=== PATIENT | female | born 1945 | race Caucasian/White ===

== ENCOUNTER → 2017-08-12 | Outpatient (CLI) | payer OTHER | LOC: M.RAD 10:03 | DX: Z12.31 Encounter for screening mammogram for malignant neoplasm of breast (principal) ==

== ENCOUNTER → 2018-08-26 | Outpatient (CLI) | payer OTHER | LOC: M.RAD 09:21 | DX: Z12.31 Encounter for screening mammogram for malignant neoplasm of breast (principal) ==

== ENCOUNTER → 2018-10-29 | Outpatient (CLI) | payer OTHER | LOC: M.RAD 13:02 | DX: M85.89 Other specified disorders of bone density and structure, multiple sites (principal); Z78.0 Asymptomatic menopausal state ==

== ENCOUNTER → 2019-09-21 | Outpatient (CLI) | payer MEDICARE | LOC: M.RAD 09:28 | DX: Z12.31 Encounter for screening mammogram for malignant neoplasm of breast (principal) ==

== ENCOUNTER 2019-10-08 05:20 | Emergency (ER) | payer MEDICARE ==
[~2019-10-08] VITALS: Ht 152.4 cm; Wt 53.4 kg
[2019-10-08 06:17] LABS: ABSOLUTE LYMPHOCYTES 1.4 thou/uL (0.8-5.3); ABSOLUTE MONOCYTES 0.8 thou/uL (0.0-1.2); ABSOLUTE NEUTROPHILS 4.3 thou/uL (1.6-8.1); BASOPHILS 0.4 %; EOSINOPHILS 0.1 %; HEMATOCRIT 41.2 % (37.0-47.0); HEMOGLOBIN 14.4 gm/dL (12.0-15.0); MCH 30.8 pg (26.0-34.0); MCHC 34.9 g/dL (28.0-37.0); MCV 88.4 fL (80.0-100.0); MONOCYTES 12.1 %; NUCLEATED RBCS 0 /100WBC; PLATELET COUNT* 207 thou/uL (150-400); POLYS 65.4 %; RBC 4.66 mil/uL (4.20-5.00); RDW-CV 13.3 % (10.5-14.5); WBC 6.5 thou/uL (4.0-11.0)
[2019-10-08 06:22] LABS: CALCIUM 8.6 mg/dL (8.5-10.1); CREATININE 1.2 mg/dL (0.6-1.3); POTASSIUM 3.9 mmol/L (3.5-5.1)
[2019-10-08 06:27] LABS: APTT 26.6 Seconds (25.0-31.3); INR 1.1; PROTIME 11.3 Seconds (9.20-11.50)
[2019-10-08 06:33] LABS: ALBUMIN 3.4 g/dL (3.4-5.0); TOTAL BILIRUBIN 0.4 mg/dL (<0.1-1.0); TOTAL PROTEIN 7.3 g/dL (6.4-8.2)
[2019-10-08 07:52] LABS: URINE BILIRUBIN NEGATIVE (Negative); URINE BLOOD TRACE (Negative); URINE CLARITY CLEAR; URINE COLOR YELLOW; URINE GLUCOSE-RANDOM NEGATIVE (Negative); URINE KETONES 1+ (Negative); URINE LEUKOCYTES-REFLEX NEGATIVE (Negative); URINE NITRITE-REFLEX NEGATIVE (Negative); URINE PROTEIN NEGATIVE (Negative); URINE SPECIFIC GRAVITY 1.025 (1.005-1.030); URINE UROBILINOGEN 0.2 E.U./dl (0.2-1.0)
[2019-10-08] MEDS ORDERED: POLYMYXIN B/TMP10 ML OPHTHALMIC (09:12)
[2019-10-08] MEDS ORDERED: ZOFRAN ODT4 MG PO (09:54)
[2019-10-08 09:56] VITALS: BP 112/61
--- NOTE | 2019-10-08 10:20 | EKG ---
[place] [address] ELECTROCARDIOGRAM REPORT Name: WOODY GRANT Room: [facility]#: [id number] Admission: 10/08/19 Attend Phys: Discharge: 10/08/19 Date of : 41 Date of Service: 10/08/19 0550 Report #: [id number] THIS REPORT FOR: //name// [facility] ED Test Date: 2019-10-08 Test Time: 05:50:12 Pat Name: WOODY GRANT Department: Room: Gender: F Web Marketing Manager: [place] : 1945 Requested By: Zev Solorzano Order Number: [id number] MD: Ryan Reece Measurements Intervals [place] Rate: 64 P: 14 [place]: 122 QRS: 17 QRSD: 93 T: 0 QT: 403 QTc: 416 Interpretive Statements Sinus rhythm Ventricular trigeminy Borderline T abnormalities, anterior leads No previous ECG available for comparison Electronically Signed On 10-08-2019 10:19:41 RECEIVING AND PROCESSING SUPERVISOR by Ryan Reece [email or web address] <ELECTRONICALLY SIGNED> By: Ryan Reece MD, [facility] 10/08/19 1019 0550 0550 Ryan Reece MD, FACC /EPI
== END 2019-10-08 09:56 | disposition home or self-care (01) ==
LOC: M.ERS 05:20
PROVIDERS: Emergency Medicine Emergency Medical Services
DX: J11.1 Influenza due to unidentified influenza virus with other respiratory manifestations (principal); B34.9 Viral infection, unspecified; R42 Dizziness and giddiness; R19.7 Diarrhea, unspecified; Z91.013 Allergy to seafood; Z88.6 Allergy status to analgesic agent; Z88.8 Allergy status to other drugs, medicaments and biological substances

== ENCOUNTER → 2019-10-15 | Outpatient (CLI) | payer MEDICARE ==
[~2019-10-15] MED LIST: POLYMYXIN B/TMP10 ML OPHTHALMIC; ZOFRAN ODT4 MG PO
== END ==
LOC: M.CT 13:49
DX: K62.89 Other specified diseases of anus and rectum (principal)

== ENCOUNTER → 2019-10-28 | Outpatient (CLI) | payer MEDICARE | LOC: M.ULTRA 10:26 | DX: T14.8XXA Other injury of unspecified body region, initial encounter (principal); X58.XXXA Exposure to other specified factors, initial encounter ==

== ENCOUNTER → 2020-09-22 | Outpatient (CLI) | payer MEDICARE | LOC: M.RAD 09:52 | PROVIDERS: ATTEND Registered Nurse Diabetes Educator | DX: Z12.31 Encounter for screening mammogram for malignant neoplasm of breast (principal); M19.011 Primary osteoarthritis, right shoulder; M89.8X1 Other specified disorders of bone, shoulder ==

== ENCOUNTER → 2021-09-27 | Outpatient (CLI) | payer MEDICARE | LOC: M.RAD 09:56 | PROVIDERS: ATTEND Registered Nurse Diabetes Educator | DX: Z12.31 Encounter for screening mammogram for malignant neoplasm of breast (principal) ==